=== PATIENT | female | born 1975 ===

== ENCOUNTER 2022-03-09 06:03 | Inpatient (IN) ==
[~2022-03-09 06:03] MED LIST: Buffered Lidocaine 1% SYRIN 1 ml INTRADERM ONE; Lactated Ringers 1000 ml BAG 1,000 ML IV SCH
[2022-03-09] MEDS ORDERED: ceFAZolin 2 GM PREMIX 2 GM/50 ML BAG ONE (06:36)
[2022-03-09] MEDS ORDERED: Ondansetron 4 mg VIAL 2 MG/ML 2 ml VIAL ONE (06:36)
[2022-03-09] MEDS ORDERED: Scopolamine 1 mg/72hr PATCH ONE (06:36)
[2022-03-09] MEDS ORDERED: Heparin 5000 UNITS/ML 1 mL VIAL ONE (06:36)
[2022-03-09] MEDS ORDERED: Buffered Lidocaine 1% SYRIN 1 ml INTRADERM ONE (06:46)
[2022-03-09] MEDS ORDERED: Gentamicin ADULT 40 MG/ML VIAL (2 ML VIAL = 80 MG) ONE (11:50)
[2022-03-09] MEDS ORDERED: ceFAZolin VIAL VIAL ONE (11:50)
[2022-03-09] MEDS ORDERED: fentaNYL 100 mcg/2 ml 50 MCG/ML VIAL IV PRN (13:39)
[2022-03-09] MEDS ORDERED: Naloxone 0.4 mg VIAL 0.4 mg/ml 1 ml VIAL IV PRN (13:39)
[2022-03-09] MEDS ORDERED: HYDROmorphone 1 MG/1 ML SYRINGE IV SLOW PU PRN (15:36)
[2022-03-09] MEDS ORDERED: HYDROcodone/ACETAMIN 5/325 mg TAB PO PRN (15:36)
[2022-03-09] MEDS ORDERED: Ondansetron 4 mg VIAL 2 MG/ML 2 ml VIAL IV PRN (15:38)
[2022-03-09] MEDS ORDERED: Al Hydrox/Mg Hydrox/Simet LIQ 30 ML UDC PO PRN (15:38)
[2022-03-09] MEDS ORDERED: Magnesium Hydroxide LIQ 30 ML UDC PO PRN (15:38)
[2022-03-09] MEDS ORDERED: LACTATED RINGERS 1000 ML BAG IV SCH (16:00)
[2022-03-09] MEDS: ceFAZolin 2 GM in NS PREMIX 2 GM/100 ML BAG IVPB SCH (16:59)
[2022-03-10] MEDS: Heparin 5000 UNITS/ML 1 mL VIAL SUBCUT SCH ×2 (00:13→07:38)
[2022-03-10] MEDS: ceFAZolin 2 GM in NS PREMIX 2 GM/100 ML BAG IVPB SCH ×2 (00:14→09:20)
[2022-03-10 12:12] VITALS: BP 107/61
== END 2022-03-10 13:07 | disposition home health service (06) | DRG 583 ==
LOC: OR 06:03 → SSU 06:03 → OBSVTOIN 15:19
PROVIDERS: ADMIT Student in an Organized Health Care Education/Training Program; ATTEND Student in an Organized Health Care Education/Training Program